=== PATIENT | male | born 1985 | race Caucasian/White ===

== ENCOUNTER 2021-03-11 20:33 | Inpatient (IN) | payer OTHER, SELFPAY ==
[2021-03-11 22:00] VITALS: BMI 28.5
--- NOTE | 2021-03-12 01:48 | PC.ADMIT ---
Addendum entered by Sushil Newell RN 03/12/21 02:13: Pt was placed on 15 minute safety checks after admitting orders obtained. Original Note: A white 35 year-old single male [facility] a section 12B at 2032 following referral from [facility]. Pt has no previous IPLOC here though pt reports he was sectioned two times without sufficient cause previously. Pt denies substance or Etoh use and reports no inpatient hospitalizations for this reason. Pt was referred from [facility] where pt was taken on section 12 by police following reports of pt making threats and statements involving a bomb and school shooting. Pt has a history of paranoia, mostly involving his neighbors. Pt expressed that he has neighbors who are police officires and / or connected to the court system and law enforcement. Pt believes that the neighbors, the courts, government and his insurance company are conspiring against him. Pt has a history of being fixated on the [place] bombings and the [employer] shootings. Pt has been sending emails, video taping and recording his neighbors. Pt believes he is being maliciously persecuted and harassed by his neighbors, which explains his behaviors. Pt reported in his [facility] assessment being bullied as a child and an adult due to his sexual orientation. 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 Pt currently has a psychologist, but no other providers. Pt was cooperative during admission, but was difficult to follow due to the complexity of pt's assertions. Medical issues include: Chrohn's and Celiacs in remission, Disautonomia and POTS for which he was last hospitalized for between 2010 and 2012. Pt is resting in room on 5 minutes Safety Checks at this time. [id number] done, initial treatment plan done and admitting orders obtained.
[2021-03-12 06:00] VITALS: BP 118/65; PULSE 76; RESP 16; TEMP 36.4; O2SAT 97
--- NOTE | 2021-03-12 06:08 | HO.PSYADMNOT ---
HPI Date of Service: 03/12/21 Chief Complaint: Delusional Sources of Information: patient interviewed, chart reviewed and crisis/core team assessment reviewed HPI Subjective Notes: Salmon Warning and Section 12B Healthcare Proxy: No Guardianship: No Medical Problems Affecting Mental Status: No Narrative: 35 SWM referred [facility] ED with delusions. Brought to ED after sending emails to an insurance company that his neighbor is trying to frame him and plans to plant a bomb in a school. Pt has ongoing paranoid delusions regarding a neighbor who now has a no contact order against him. 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 He states his neighbor and his son are both police officers who file false reports that frame him : that he yelled/that he made the bombs used in [place] bombing/that they have a vendetta against him/that they are part of an extortion plot and a false police state. He states he was part of the [employer] defense team. [facility]/his insurance company/school officials are part of this conspiracy and file malicious/false reports . Pt was noted to be videotaping staff in the ED and promptly asked TW to show me the [facility] reports to check for inconsistencies . Speech was rapid/pressured and jumped to various themes of persecution. He denied he has a mental illness/or that his perceptions were false. Bitterly complained that he has been illegally detained. He understood he is on a S12.He refuses medications. Past Psychiatric History: Therapist: Deepti Santoyo in [place]. Hx IP stays at [facility] July 2020/[facility] Dec 2019, [facility] July 2019, [facility] Apr 2016. He denies he has taken any neuroleptics (does not believe he needs them). Self reports he has not been committed or has a Parkinson order. Medical Evaluation Reviewed: Yes [facility] Medical History Dysautonomia History of celiac disease History of Crohn's disease POTS (postural orthostatic tachycardia syndrome) Surgical History History of colonoscopy Family History: None Social History: B and raised in [place]. Attended [employer] and [employer]. 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 Own guardian Substance History: None Trauma History: was subject to bullying in school with homophobic slurs Diagnostics Vital Signs (24Hr): BMI result Body Mass Index 28.5 Labs Results: 03/12/21 07:31 03/12/21 07:31 EKG EKG Comment: EKG not done Meds/Allergies Meds Home Medications Acetaminophen (Acetaminophen 325 Mg Tablet) 650 mg PO Q6H PRN PRN Reason: Headache/Pain Mild Scale (1-3) Al Hydroxide/Mg Hydroxide (Magnesium Hydrox/Alum Hydrox 30 Ml Oral.Susp) 30 ml PO Q6H PRN PRN Reason: Heartburn/Nausea Hydroxyzine HCl (Hydroxyzine Hcl 25 Mg Tablet) 25 mg PO Q6H PRN PRN Reason: Anxiety Magnesium Hydroxide (Milk Of Magnesia 30 Ml Oral.Susp) 30 ml PO DAILY PRN PRN Reason: Constipation Trazodone HCl (Trazodone Hcl 50 Mg Tablet) 50 mg PO BEDTIME PRN PRN Reason: Insomnia Allergies Allergies Allergy/AdvReac Type Severity Reaction Status Date / Time succinylcholine AdvReac Muscle Verified 03/12/21 00:05 cramps Mental Status Exam Mental Status Exam Patient Appearance: Well Grooomed and Appropriate Patient Orientation: Person, Place, Time and Situation Level of Consciousness: Restless and Alert Patient Behavior: Talkative and Restless Mood Description: Suspicious, Hostile, Labile and Angry Affect Description: Suspicious and Hostile Ability to Follow Directions: Good Speech Pattern: Rambling, Rapid, Animated, Loud and Pressured Memory Description: Intact Hallucinations: None Delusions: Paranoid Ideation (Elaborate persecutory delusions) and Bizarre Thought Process: Illogical Thought Content: positive for Flight of Ideas, positive for Suicidal Ideation (denies) and positive for Homicidal Ideation (denies) Judgement: Poor Assessment & Plan Assessment & Plan (1) Delusional disorder: Status: Acute Code(s): F22 - Delusional disorders Assessment and Plan: Will need civil committment for definitive treatment. Collect collateral information from parents/ other providers. (2) Psychosis: Status: Acute Code(s): F29 - Unspecified psychosis not due to a substance or known physiological condition Assessment and Plan: 35 SWKetan presents with elaborate delusions regarding persecutory conspiracies by his neighbor and other organizations (FBI/school/insurance company/ [employer]). No insight. Judgement is highly impaired and his delusions and behaviors pose a risk of retaliatory aggression from the targets of his paranoid investigations, and put him at risk. Patient educated on: diagnosis Informed Consent: does not understand Reason for continued inpatient stay Substantial Risk for: harm to self (by his paranoid behaviors), inability to function, rapid decompensation and other
--- NOTE | 2021-03-12 07:52 | P.CONHOSP_ITS ---
History of Present Illness Data of Consult Service Date: 03/12/21 Primary Care Provider: Unknown Physician HPI Reason for consult: Routine consult 35-year-old man with history of celiac disease, pots, Crohn's disease admitted to for psychiatric care. His vital signs are stable, labs within acceptable limits. He has no acute medical complaints at this time. He was transferred from [facility]. Review of Systems Review of Systems: Denies any recent fever chills or decrease in appetite respiratory denies any shortness of breath coverage production cardiovascular Denies chest pain gastrointestinal denies any dysphagia abdominal pain nausea vomiting or diarrhea genitourinary denies any dysuria frequency or hematuria musculoskeletal denies any joint pain or swelling neuropsych denies any weakness or seizures all other systems reviewed are negative [facility] Medical History (Updated 03/12/21 @ 10:11 by Jackie Haji NP) Dysautonomia History of celiac disease History of Crohn's disease POTS (postural orthostatic tachycardia syndrome) Pertinent family history: no cardiac disease Surgical History (Updated 03/12/21 @ 00:00 by Sushil Newell RN) History of colonoscopy Social History Household Members: Family Housing: House Do you presently have visiting nurse or other home services: No Patient Tobacco Use Status: Never used Tobacco Smoked in Last 30 Days: No e-Cigarette/Vaping Use: Never Used Patient Interested in Nicotine Replacement: No Patient Given Instructions on How to Stop Smoking: No Second Hand Smoke Exposure: No Use of substances other than those prescribed or required for medical reasons: No Currently Displaying Signs/Symptoms of Drug Intoxication Withdrawal: No Any prior treatment program specific to substance use: No Have you been hit, kicked, punched, or otherwise hurt by someone within the past year? If so, by whom?: No Do you feel safe in your current relationship?: No Current Relationship Is there a partner from a previous relationship who is making you feel unsafe now?: No Are you made to feel afraid or neglected: No Spiritual Healthcare Practices: N/A Worship Healthcare Practices: Alevism Cultural Healthcare Practices: N/A Advance Directives: No Advance Directives on File: No Do you have thoughts of harming others: None Do you have a plan to hurt others: No Plan Recently lost weight without trying: No Eating poorly because of decreased appetite: Yes Nutrition Risks: No Nutritional Risk Poor oral hygiene: No (Pt says recently chipped a tooth.) Meds Allergies Allergy/AdvReac Type Severity Reaction Status Date / Time succinylcholine AdvReac Muscle Verified 03/12/21 00:05 cramps Active Medications: Current Medications Acetaminophen (Acetaminophen 325 Mg Tablet) 650 mg PO Q6H PRN PRN Reason: Headache/Pain Mild Scale (1-3) Al Hydroxide/Mg Hydroxide (Magnesium Hydrox/Alum Hydrox 30 Ml Oral.Susp) 30 ml PO Q6H PRN PRN Reason: Heartburn/Nausea Hydroxyzine HCl (Hydroxyzine Hcl 25 Mg Tablet) 25 mg PO Q6H PRN PRN Reason: Anxiety Magnesium Hydroxide (Milk Of Magnesia 30 Ml Oral.Susp) 30 ml PO DAILY PRN PRN Reason: Constipation Trazodone HCl (Trazodone Hcl 50 Mg Tablet) 50 mg PO BEDTIME PRN PRN Reason: Insomnia Physical Exam Vital Signs and Narrative: Vital Signs: Last Vital Signs Temp 97.5 F 03/12/21 06:00 Pulse 76 03/12/21 06:00 Resp 16 03/12/21 06:00 BP 118/65 03/12/21 06:00 Pulse Ox 97 03/12/21 06:00 BMI result Body Mass Index 28.5 Appearing in no acute distress lung sounds are clear to auscultation heart regular rate rhythm, clear S1, S2 positive bowel sounds, abdomen is soft, nontender neuro patient is alert x3, no focal deficits CRANIAL NERVES 2-12 GROSSLY INTACT WITHOUT FOCAL DEFICITS Results Labs CBC and Chem 7: 03/12/21 07:31 03/12/21 07:31 Assessment and Plan (1) POTS (postural orthostatic tachycardia syndrome): Status: Acute (2) History of Crohn's disease: Status: Acute (3) History of celiac disease: Status: Acute 35-year-old man admitted to for psychiatric care History of celiac disease, Crohn's disease and POTS Mental health Management as per admittingmeeting team
[2021-03-12 08:01] LABS: MANUAL DIFF FLAG NO
[2021-03-12 08:04] LABS: Basophils Absolute Auto 0.1 X10*3/uL (0.0-0.2); Basophils Percent Auto 0.8 % (0-2); Eosinophils Absolute Auto 0.4 X10*3/uL (0.0-0.4); Eosinophils Percent Auto 5.4 % (0-4); Hematocrit 42.6 % (42.0-52.0); Hemoglobin 14.3 g/dl (14.0-18.0); Imm Gran Abs Auto 0.01 X10*3/uL (0.00-0.03); Imm Gran Pct Auto 0.2 % (0.0-0.4); Lymphocytes Absolute Auto 1.7 X10*3/uL (1.2-4.9); Lymphocytes Percent Auto 26.6 % (20-40); Mean Corpuscular HGB Conc 33.6 g/dl (31.0-36.0); Mean Corpuscular Hemoglobin 30.9 pg (27.0-33.0); Mean Platelet Volume 9.8 fL (9.4-12.4); Monocytes Absolute Auto 0.9 X10*3/uL (0.1-1.2); Monocytes Percent Auto 13.6 % (2-11); Neutrophils Absolute Auto 3.5 x10*3/uL (2.0-8.3); Neutrophils Percent Auto 53.4 % (45-73); Platelet Count 300 X10*3/uL (160-400); Red Blood Count 4.63 X10*6/uL (4.60-5.80); Red Cell Distribution Width 11.8 % (11.0-16.0); White Blood Count 6.5 X10*3/uL (4.8-10.8)
[2021-03-12 08:17] LABS: Estimated Average Glucose 100 mg/dL; Hemoglobin A1c % 5.1 %
[2021-03-12 08:21] LABS: Alanine Aminotransferase 18 U/L (0-40); Albumin Level 3.9 g/dL (3.5-5.0); Alkaline Phosphatase 62 U/L (39-117); Anion Gap 15 (12-20); Aspartate Amino Transferase 18 U/L (5-37); Bilirubin Total 0.7 mg/dL (0.0-1.0); Blood Urea Nitrogen 15 mg/dL (9-16); Calcium 9.4 mg/dL (8.4-10.2); Carbon Dioxide 25 mmol/L (22-29); Chloride 105 mmol/L (96-108); Cholesterol 145 mg/dL; Creatinine Clr Calc Pharmacy 154.3; Estimated Glomerular Filt Rate > 60; Glucose Fasting 100 mg/dL (60-99); HDL Cholesterol 26 mg/dL; LDL Cholesterol Calculated 89 mg/dl; Magnesium 2.2 mg/dL (1.6-2.6); Potassium 4.9 mmol/L (3.3-5.1); Sodium 140 mmol/L (135-145); Total Protein 6.6 g/dL (6.5-8.0); Triglycerides 154 mg/dL
[2021-03-12 08:44] LABS: Thyroid Stimulating Hormone 1.34 uIU/mL (0.32-4.0)
[2021-03-12 10:51] LABS: Amphetamine Screen Urine Not Detected (Not Detect); Barbiturates, Urine Not Detected (Not Detect); Benzodiazepines Screen Urine Not Detected (Not Detect); Cannabinoid Screen Urine Not Detected (Not Detect); Cocaine Screen Urine Not Detected (Not Detect); Fentanyl, urine Not Detected (Not Detect); Opiate Screen Urine Not Detected (Not Detect); Phencyclidine Screen Urine Not Detected (Not Detect)
[2021-03-12 17:22] VITALS: BP 140/82; PULSE 97; TEMP 36.6; O2SAT 95
--- NOTE | 2021-03-13 15:00 | HO.PSYCHPN ---
Subjective Subjective Date of Service: 03/13/21 Reason For Visit: Delusional Subjective Notes: [place] Warning and Section 12B Interim History: No change in delusional. Speech is pressured and legalistic. I tried to reality test but he insists he is not delusional. Became agitated. I explained S12 and preliminary information re committment. Risperidone prescribed but he said he will refuse Medication Compliance: No Review of Systems Medical Review of Systems: unchanged Review of Systems Review of Systems Denies any recent fever chills or decrease in appetite respiratory denies any shortness of breath coverage production cardiovascular Denies chest pain gastrointestinal denies any dysphagia abdominal pain nausea vomiting or diarrhea genitourinary denies any dysuria frequency or hematuria musculoskeletal denies any joint pain or swelling neuropsych denies any weakness or seizures all other systems reviewed are negative Yes all other systems are reviewed and are negative Mental Status Exam Mental Status Exam Patient Appearance: Well Grooomed and Appropriate Patient Orientation: Person, Place, Time and Situation Level of Consciousness: Restless and Alert Patient Behavior: Talkative and Restless Mood Description: Suspicious, Hostile, Labile and Angry Affect Description: Suspicious and Hostile Ability to Follow Directions: Good Speech Pattern: Rambling, Rapid, Animated, Loud and Pressured Memory Description: Intact Diagnostics Vital Signs (24Hr): Vital Signs - 24 hr 03/12/21 17:22 Temperature 98 F Pulse Rate 97 Blood Pressure 140/82 H Pulse Oximetry 95 BMI result Body Mass Index 28.5 Labs Results: 03/12/21 07:31 03/12/21 07:31 Labs: Laboratory Results - last 48 hr 03/12/21 03/12/21 03/12/21 07:31 07:31 07:31 WBC 6.5 RBC 4.63 Hgb 14.3 Hct 42.6 MCV 92.0 MCH 30.9 MCHC 33.6 RDW 11.8 Plt Count 300 MPV 9.8 Immature Gran % (Auto) 0.2 Neut % (Auto) 53.4 Lymph % (Auto) 26.6 [place] % (Auto) 13.6 H Eos % (Auto) 5.4 H Baso % (Auto) 0.8 Lymph # (Auto) 1.7 [place] # (Auto) 0.9 Eos # (Auto) 0.4 Baso # (Auto) 0.1 Abs Immat Gran (auto) 0.01 Absolute Neuts (auto) 3.5 Absolute Nucleated RBC 0.000 Nucleated RBC % (auto) 0.0 Sodium 140 Potassium 4.9 Chloride 105 Carbon Dioxide 25 Anion Gap 15 BUN 15 Creatinine 0.80 Estim Creat Clear Calc 154.3 Estimated GFR > 60 Fasting Glucose 100 H Estimat Average Glucose 100 Hemoglobin A1c % 5.1 Calcium 9.4 Magnesium 2.2 Total Bilirubin 0.7 AST 18 ALT 18 Alkaline Phosphatase 62 Total Protein 6.6 Albumin 3.9 Triglycerides 154 Cholesterol 145 LDL Cholesterol, Calc 89 HDL Cholesterol 26 TSH 1.34 Free T4 1.10 Urine Opiates Screen Urine Fentanyl Screen Ur Barbiturates Screen Ur Phencyclidine Scrn Ur Amphetamines Screen U Benzodiazepines Scrn Urine Cocaine Screen U Marijuana (THC) Screen 03/12/21 09:51 WBC RBC Hgb Hct MCV MCH MCHC RDW Plt Count MPV Immature Gran % (Auto) Neut % (Auto) Lymph % (Auto) [place] % (Auto) Eos % (Auto) Baso % (Auto) Lymph # (Auto) [place] # (Auto) Eos # (Auto) Baso # (Auto) Abs Immat Gran (auto) Absolute Neuts (auto) Absolute Nucleated RBC Nucleated RBC % (auto) Sodium Potassium Chloride Carbon Dioxide Anion Gap BUN Creatinine Estim Creat Clear Calc Estimated GFR Fasting Glucose Estimat Average Glucose Hemoglobin A1c % Calcium Magnesium Total Bilirubin AST ALT Alkaline Phosphatase Total Protein Albumin Triglycerides Cholesterol LDL Cholesterol, Calc HDL Cholesterol TSH Free T4 Urine Opiates Screen Not Detected Urine Fentanyl Screen Not Detected Ur Barbiturates Screen Not Detected Ur Phencyclidine Scrn Not Detected Ur Amphetamines Screen Not Detected U Benzodiazepines Scrn Not Detected Urine Cocaine Screen Not Detected U Marijuana (THC) Screen Not Detected Medications Medications Current Medications Acetaminophen (Acetaminophen 325 Mg Tablet) 650 mg PO Q6H PRN PRN Reason: Headache/Pain Mild Scale (1-3) Al Hydroxide/Mg Hydroxide (Magnesium Hydrox/Alum Hydrox 30 Ml Oral.Susp) 30 ml PO Q6H PRN PRN Reason: Heartburn/Nausea Hydroxyzine HCl (Hydroxyzine Hcl 25 Mg Tablet) 25 mg PO Q6H PRN PRN Reason: Anxiety Lorazepam (Lorazepam 1 Mg Tablet) 1 mg PO Q4H PRN PRN Reason: anxiety/restlessness Magnesium Hydroxide (Milk Of Magnesia 30 Ml Oral.Susp) 30 ml PO DAILY PRN PRN Reason: Constipation Risperidone (Risperidone 1 Mg Tablet) 1 mg PO BEDTIME KEKE Trazodone HCl (Trazodone Hcl 50 Mg Tablet) 50 mg PO BEDTIME PRN PRN Reason: Insomnia Allergies Allergies Allergy/AdvReac Type Severity Reaction Status Date / Time succinylcholine AdvReac Muscle Verified 03/12/21 00:05 cramps Assessment & Plan Assessment & Plan (1) Delusional disorder: Status: Acute Code(s): F22 - Delusional disorders Assessment and Plan: Will need civil committment for definitive treatment. Collect collateral information from parents/ other providers. (2) Psychosis: Status: Acute Code(s): F29 - Unspecified psychosis not due to a substance or known physiological condition Assessment and Plan: 35 KRISTAN presents with elaborate delusions regarding persecutory conspiracies by his neighbor and other organizations (FBI/school/insurance company/ [employer]). No insight. Judgement is highly impaired and his delusions and behaviors pose a risk of retaliatory aggression from the targets of his paranoid investigations, and put him at risk. 03/13/21: Start Risperidone (but pt likely will refuse) I spent minutes with the patient and/or on the patient floor today, greater than?50% of which was spent counseling/coordinating care. Informed Consent: does not understand Reason for contiued inpatient stay Substantial Risk for: rapid decompensation
[2021-03-13 17:43] VITALS: BP 142/90; PULSE 108; RESP 18; TEMP 36.9; O2SAT 96
[2021-03-14 08:34] LABS: Folate 8.3 ng/mL (> or = 4.0); Vitamin B12 436 pg/mL (200-900)
[2021-03-14 18:30] VITALS: BP 132/73; PULSE 101; TEMP 37.2
--- NOTE | 2021-03-14 22:05 | HO.PSYCHPN ---
Subjective Subjective Date of Service: 03/14/21 Reason For Visit: Delusional Interim History: Patient sitting in his room. He is polite and courteous. He does have pressured speech but is logical and linear. Patient starts by saying that his ending up in the emergency room as part of a convoluted process. He explains the reason he thinks he has been taking to the hospital starting with the back story of having his [employer] monthly pre-paid legal benefits discontinued this past July 2020 which he thinks is related to his neighbors or local police's influence. In 2019 patient says his neighbor purgered himself and told the court saying that the patient was making a bomb threat. Patient is talking quickly and the exact details and timeline is a little difficult to follow however the gist is that patient thinks his neighbor, former [employer] operations staff officer is stalking him and wrongly accusing him of talking about bombing his school were something of that nature. Patient says that he told his insurance company of a fear he had that someone had some intention of shooting the local elementary school room; it is not clear exactly who called whom but it seems that his neighbor at some point told police that patient talked about a balm and the police came and brought him to the emergency room by Section 12. Patient says this is ridiculous, he does not want hurt anyone he has never hurt anyone and he just wants his neighbor to leave him alone. He says that he has been cyber-stalked by his neighbor which he determined by looking at his neighbor's a Facebook page and realizing that his neighbor has befriended several autism specialists that work with the local elementary, middle school and high school; patient says that this is not a coincident since he has ASD. He says that he has been stalked by a Street car racing gang called feels like ... And that this gang stalked both patient and his mother in to [employer]. Patient sent an e-mail to the [employer] ethics hot line and said he got a reply saying these people are now band from [employer]. He says that this gang is friends with the organ recovery coordinator in [facility]. He said that their motivation is to build false complaints against him. Patient is willing to acknowledge that he may be misinterpreting these events and may be completely incorrect in his assessment of his neighbor and whether or not he is being stalked. He says however that he has a right to be wrong also and has a right to inquire to see if he is in-fact being cyber bullied or stalked. Patient denies any SI or HI or AVH. He reports that he sleeps well at night, 8-12 hours and denies history of episodic insomnia. Patient encouraged is documentation writer to talk with Dr. Nixon in his therapist whom patient signed an GARY. Patient said he is willing to consider that there is a remote possibility he has a mental illness and these are delusional thoughts however he feels this is very unlikely and he is not interested at all in any kind of medication. Lumber Inspector did talk with his therapist Dr. Santoyo who has seen him for the past 2 years about once a week. She says that every week patient is presenting pretty much exactly the same as he is presenting now on the unit. She has diagnosed him with a delusional disorder and says that for years he has been fixated on this exact same theme, that his neighbor is somehow stalking him and bothering him and falsely accusing him. This is wrapped up in his fixed belief that someone is planning to bottom the elementary school. She says in all the time she has known him he has never talked about hurting anyone and she has never had any concern at all for his safety or the safety of others. She reports that he has been Section 12 at least 2 times and that is typically released within a day or 2 as those examine him come to the same conclusion that he is not in imminent risk for harm to himself or others. She said even this time at the emergency room, the N and die storage worker present initially said that he does not need inpatient admission however she was convinced by others to do so. She thinks that he likely has ASD; she has wondered if he has any manic episodes however she has been unable to diagnose this. Mental Status Exam Mental Status Exam Narrative: Pt is alert and oriented; behavior is cooperative, friendly; patient is not in distress; dressed in casual attire with neat cloths and appropriately styled hair and adequate hygiene; mood is described as good and affect anxious; eye contact appropriate; Speech is pressured but normal volume and prosody and not pressured; no psychomotor agitation/retardation present; thought process is organized, linear, logical and goal directed however, he can also be circumstantial; Thought content is perseverative on idea that his neighbor is purposely persecuting him; denies any SI/HI. There is no evidence of perceptual disturbance and he denies AVH. Patients insight and judgment are impaired but based on collateral likely at baseline. Diagnostics Vital Signs (24Hr): Vital Signs - 24 hr 03/14/21 18:30 Temperature 98.9 F Pulse Rate 101 H Blood Pressure 132/73 BMI result Body Mass Index 28.5 Labs Results: 03/12/21 07:31 03/12/21 07:31 Labs: Laboratory Results - last 48 hr 03/12/21 07:31 Vitamin B12 436 Folate 8.3 Medications Medications Current Medications Acetaminophen (Acetaminophen 325 Mg Tablet) 650 mg PO Q6H PRN PRN Reason: Headache/Pain Mild Scale (1-3) Al Hydroxide/Mg Hydroxide (Magnesium Hydrox/Alum Hydrox 30 Ml Oral.Susp) 30 ml PO Q6H PRN PRN Reason: Heartburn/Nausea Hydroxyzine HCl (Hydroxyzine Hcl 25 Mg Tablet) 25 mg PO Q6H PRN PRN Reason: Anxiety Lorazepam (Lorazepam 1 Mg Tablet) 1 mg PO Q4H PRN PRN Reason: anxiety/restlessness Magnesium Hydroxide (Milk Of Magnesia 30 Ml Oral.Susp) 30 ml PO DAILY PRN PRN Reason: Constipation Risperidone (Risperidone 1 Mg Tablet) 1 mg PO BEDTIME KEKE Last Admin: 03/13/21 21:57 Dose: Not Given Documented by: Trazodone HCl (Trazodone Hcl 50 Mg Tablet) 50 mg PO BEDTIME PRN PRN Reason: Insomnia Allergies Allergies Allergy/AdvReac Type Severity Reaction Status Date / Time succinylcholine AdvReac Muscle Verified 03/12/21 00:05 cramps Assessment & Plan Assessment & Plan (1) Delusional disorder: Status: Acute Code(s): F22 - Delusional disorders Assessment and Plan: Will need civil committment for definitive treatment. Collect collateral information from parents/ other providers. Assessment and Plan: 35 KRISTAN presents with elaborate delusions regarding persecutory conspiracies by his neighbor and other organizations (FBI/school/insurance company/ [employer]). No insight. Patient has a history of delusional disorder and perseverates on paranoid delusion that his neighbor conspires to malign his name and and may have nepharious intentions. Patient denies any SI or HI or AVH. Patient has a therapist he sees once a week who reports that patient has had this fixed delusion for years but has never done anything unsafe and that she has never had any concern for his safety or safety of others at his hand. Patient refuses medication. He is willing to acknowledge that he may be misinterpreting events or facts however he feels this is very low possibility and overall believes his delusion as true. Based on patient's current presentation and on collateral it is not clear that patient is in any imminent risk of harm to self or others. Will continue to collect collateral Plan: Patient on 12 B Q 15 minutes for checks Patient refuses all medications Will continue to gather collateral I spent minutes with the patient and/or on the patient floor today, greater than?50% of which was spent counseling/coordinating care. Reason for contiued inpatient stay Substantial Risk for: med/psych decompensation
--- NOTE | 2021-03-15 10:27 | HO.PSYCHPN ---
Subjective Subjective Date of Service: 03/15/21 Reason For Visit: Delusional Interim History: Patient reports that he is overall doing well but is anxious and feels that he has been admitted to the psychiatric unit unfairly. Patient helps clarify course of events leading to this admission. Patient said that his legal group [employer] canceled his contract which he believes is due to interference from his neighbor and possibly the local police. Because patient believe this was the reason, he wrote and e-mailto the [employer] company explaining that his neighbor had in the past per did himself by lying in saying that patient was connected with the [place] marathon bombing incident. Also in the mail he referred to the neighbor's son saying he was concerned that he may be up to something nefarious since the son has friend did numerous people on Facebook that are associated with the local elementary and middle school (patient says that he feels cyber stalked because this person also has on his Facebook account mentioning of items of interest such as golf, new balance shoes, Kathleen speakers and mention of ASD, things that are of interest to this patient). [employer] forwarded this email to the police. Patient says says that the police showed up at his door with a Section 12 and explained they got the e-mail from [employer] and had concerns concerns that he was going to mom/shoot up the elementary school. Patient said this is ridiculous but went with him to the emergency room. Patient reports that he does have a Taser at home however he denies having any other weapons at all of any kind. It is also worth that despite patients persecutory delusions, he has only 2 times verbally yelled that his neighbor. The 1st time was December 2018 and the 2nd time was July 2019 where he yelled and called his neighbor a swear, angry at his neighbor due to patients delusions that neighbor is trying to associate him with the [place] marathon bombing. Patient says that he has never physically, verbally, or with gestures threatened his neighbor or anyone, nor has he gone on his neighbor's property (he says other then perhaps one time, 5 years ago since a piece of trash blew on to neighbors lawn). Patient says that he has also never been to his school's since he graduated. Patient reports that his neighbor, following being yelled at called the police and patient was charged with harassment. However this harassment charge was dismissed when it finally went to court on 03/01/2021, just 2 weeks ago. Patient feels that the timing of this is relevant and that his neighbor is likely just pissed off that the charge was dismissed. Patient says he goes out of his weight to avoid him and prefer to have no contact or interactions all; he reiterates upon inquiry he has no ill will, intentions or plans to harm anyone. He said he has contemplated moving himself. Patients therapist reports patient is rule oriented to which patient wholeheartedly agrees; he says ever since July 2019 when intervening custom protection officer told him to not talk to his neighbor, patient has fully obeyed and says he goes out of his way to avoid him. Farm Operator discussed again the idea of medication. Patient does not believe he has a delusional disorder; he agrees that this situation has been stressful and that it interferes with his life making it hard for him to maintain employment since he is focused on trying to figure this out. He thinks writer editor for offer a medication, but also does not want medication to help make this less stressful for him. Collateral was obtained from patient's mother by social welfare administrator She reports that she thinks the issue is really an interpersonal one with neighbors and she says that neighbor, a former attorney law clerk, has submitted false reports in effort to get them out of neighborhood and says that she too has had interpersonal issues with the neighbor whose made complaints about state of her home. She thinks that Michael had sent an email which she notes was to an insurance company with hope of him getting back onto a plan. She is uncertain as to what he wrote in the email or if he had made accusations towards others. She is unsure if neighbor had called and made report or if it was a result of email. She corroborates that no contact/harassment order was dismissed by court. She says her son has never made threats towards anyone and feels he?s safe to return home. Patient's mother corroborates that patient does have a Taser but the he does not have any other weapons of any kind nor are there any other weapons in the house. shoddy mill worker Gina Coppola was able to get additional information from police report regarding this incident and paraphrasing, says the email expressed patients worry that there was going to be a bomb at the elementary school on 03/15 and that he was afraid he would be blamed for it. Mental Status Exam Mental Status Exam Narrative: Pt is alert and oriented; behavior is cooperative, friendly; patient is not in distress; dressed in casual attire with neat cloths and appropriately styled hair and adequate hygiene; mood is described as good and affect anxious; eye contact appropriate; Speech is pressured but normal? volume and prosody and not pressured; no psychomotor agitation/retardation present; thought process is organized, linear, logical and goal directed however, he can also be circumstantial; Thought content is perseverative on idea that his neighbor is purposely persecuting him; denies any SI/HI. There is no evidence of perceptual disturbance and he denies AVH.? Patients insight and judgment are impaired but based on collateral likely at baseline. Diagnostics Vital Signs (24Hr): Vital Signs - 24 hr 03/14/21 18:30 Temperature 98.9 F Pulse Rate 101 H Blood Pressure 132/73 BMI result Body Mass Index 28.5 Labs Results: 03/12/21 07:31 03/12/21 07:31 Labs: Laboratory Results - last 48 hr 03/12/21 07:31 Vitamin B12 436 Folate 8.3 Medications Medications Current Medications Acetaminophen (Acetaminophen 325 Mg Tablet) 650 mg PO Q6H PRN PRN Reason: Headache/Pain Mild Scale (1-3) Al Hydroxide/Mg Hydroxide (Magnesium Hydrox/Alum Hydrox 30 Ml Oral.Susp) 30 ml PO Q6H PRN PRN Reason: Heartburn/Nausea Hydroxyzine HCl (Hydroxyzine Hcl 25 Mg Tablet) 25 mg PO Q6H PRN PRN Reason: Anxiety Lorazepam (Lorazepam 1 Mg Tablet) 1 mg PO Q4H PRN PRN Reason: anxiety/restlessness Magnesium Hydroxide (Milk Of Magnesia 30 Ml Oral.Susp) 30 ml PO DAILY PRN PRN Reason: Constipation Risperidone (Risperidone 1 Mg Tablet) 1 mg PO BEDTIME KEKE Last Admin: 03/15/21 00:24 Dose: Not Given Documented by: Trazodone HCl (Trazodone Hcl 50 Mg Tablet) 50 mg PO BEDTIME PRN PRN Reason: Insomnia Allergies Allergies Allergy/AdvReac Type Severity Reaction Status Date / Time succinylcholine AdvReac Muscle Verified 03/12/21 00:05 cramps Assessment & Plan Assessment & Plan (1) Delusional disorder: Status: Acute Code(s): F22 - Delusional disorders Assessment and Plan: Will need civil committment for definitive treatment. Collect collateral information from parents/ other providers. (2) Psychosis: Status: Acute Code(s): F29 - Unspecified psychosis not due to a substance or known physiological condition Assessment and Plan: 35 SWM with history of delusional disorder and probably ASD, presents with delusions regarding persecutory conspiracies by his neighbor and other organizations (FBI/school/legal company/ [employer]); limited insight. Patient has a history of delusional disorder and perseverates on paranoid delusion that his neighbor conspires to malign his name, is trying to associate the patient with the [employer] bombing and may have nefarious intentions. 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 On admission, pt refused to sign in and was admitted on a Section 12b. He denies mental illness and does not feel need for medication. Patient denies any SI or HI or AVH. Patient denies any thought, intention or plan of ever of harming anyone, shooting anything or bombing anything. Patient has a fixed false belief that his neighbor and neighbor's son have been stalking him on the Internet, sending a Street racing car gang to follow him in the community and are involved in getting his legal firm to cancel their contract with him. He acknowledges that he might be misinterpreting events or facts and that it is possible he could be having delusional ideas (though he thinks this very unlikely); however he also says he has the right to be wrong and the right to pursue an inquiry whether he is being stalked on the Internet or in the community. Patient agrees that these concerns are stressful for him and have made it difficult for him to continue working full-time. However he accepts this as a fact of his life. Patient does go to therapy once a week for the past 2 years. Farm Operator talked to Dr. Santoyo, his therapist who reports that patient has had this fixed delusion for years but has never done anything unsafe and that she has never had any concern for his safety or safety of others at his hand. Patient's mother corroborates that patient has never been unsafe to anyone and has no intentions or plans to harm anyone. She believes that the neighbor has given a false report about her son as well. It is also worth that despite patients persecutory delusions, he has only 2 times verbally yelled that his neighbor. The 1st time was December 2018 and the 2nd time was July 2019 where he yelled and called his neighbor a swear, angry at his neighbor due to patients delusions that neighbor is trying to associate him with the [place] marathon bombing. Patient says that he has never physically, verbally, or with gestures threatened his neighbor or anyone, nor has he gone on his neighbor's property (he says other then perhaps one time, 5 years ago since a piece of trash blew on to neighbors lawn). Patient says that he has also never been to his school's since he graduated. Patient reports that his neighbor, following being yelled at called the police and patient was charged with harassment. However this harassment charge was dismissed when it finally went to court on 03/01/2021, just 2 weeks ago. Patient feels that the timing of this is relevant and that his neighbor is likely just pissed off that the charge was dismissed. Patient says he goes out of his way to avoid him and prefers to have no contact or interactions all; he reiterates upon inquiry he has no ill will, intentions or plans to harm anyone. He said he has contemplated moving himself. Throughout his time on the unit patient has remained delusional, with poor insight and not wanting treatment. However, patient is at his baseline and he has remained appropriate with peers and staff, been in good behavioral and impulse control and consistently denied any SI or HI. He is not depressed, without manic behaviors and has remains with organized speech, organized behavior and a logical and linear thought process. To writers knowledge, patient has no history at all of harm to self or harm to others or of making threats to harm in any way which is corroborated by patients mother and therapist. Patient's therapist says that this is a pattern for patient, to reference vomiting or shooting, to get Section to the emergency room but to be quickly discharged with those assessing him deciding he is safe. Given patient has chronic, untreated persecutory delusional disorder, it is likely that he will continue to believe that his neighbor is stalking him and perseverate on school by means or shootings. However based on his presentation and collateral from both his mother and therapist who know him well, writer editor cannot testify that patient is in imminent risk of harm to self or others. Collateral: -Collateral obtained from patient's therapist Dr. Santoyo who is known patient for 2 years and sees him weekly and reports that patient has a delusional disorder; she reports that she does not nor has she ever had any concern that he was unsafe for danger to himself or others. She reports that he has been fixated on delusional ideas about this specific neighbor. -Collateral was obtained from patient's mother who reports that she thinks the issue is really an interpersonal one with neighbors and she says that neighbor, a former attorney law clerk, has submitted false reports in effort to get them out of neighborhood and says that she too has had interpersonal issues with the neighbor whose made complaints about state of her home. She thinks that Michael had sent an email which she notes was to an [legal] company with hope of him getting back onto a plan. She is uncertain as to what he wrote in the email or if he had made accusations towards others. She is unsure if neighbor had called and made report or if it was a result of email. She corroborates that no contact/harassment order was dismissed by court. She says her son has never made threats towards anyone and feels he?s safe to return home. Patient's mother corroborates that patient does have a Taser but the he does not have any other weapons of any kind nor are there any other weapons in the house. -Information regarding reason police picked up patient and brought to ED was obtained by shoddy mill worker Gina Coppola; apparently, police report says police learned of email sent by patient to the legal firm that expressed patients worry that there was going to be a bomb at the elementary school on 03/15 and that he was afraid he would be blamed for it. PLAN: Patient on 12 B Q 15 minutes for checks Patient refuses all medications I spent minutes with the patient and/or on the patient floor today, greater than?50% of which was spent counseling/coordinating care. Reason for contiued inpatient stay Substantial Risk for: stable for discharge
[2021-03-15 20:20] VITALS: BP 137/83; PULSE 92; RESP 16; TEMP 36.1; O2SAT 98
[2021-03-16 10:56] VITALS: BP 142/74; PULSE 109; RESP 16; O2SAT 99
--- NOTE | 2021-03-16 12:20 | PM.PSYDC ---
DS: Providers Provider Date of Service: 03/16/21 Date of admission: 03/11/21 20:33 Date of discharge: 03/16/21 Primary care physician: Unknown Physician Admitting clinician: Sergei Willis Consults: 03/11/21 21:50 Consult to Hospitalist Routine Consulting Provider: Hospitalist Reason For Exam: [place] [facility] [place] physician on discharge: Morgan Quinn DS: Diagnosis Discharge Diagnosis (1) Delusional disorder: Status: Acute (2) Psychosis: Status: Acute Mental Status Exam Mental Status Exam Narrative: ?Pt is alert and oriented; behavior is cooperative, friendly; patient is not in distress; dressed in casual attire with neat cloths and appropriately styled hair and adequate hygiene; mood is described as good and affect anxious; eye contact appropriate; Speech is pressured but normal? volume and prosody and not pressured; no psychomotor agitation/retardation present; thought process is organized, linear, logical and goal directed however, he can also be circumstantial; Thought content is perseverative on idea that his neighbor is purposely persecuting him; denies any SI/HI. There is no evidence of perceptual disturbance and he denies AVH.? Patients insight and judgment are impaired but at baseline. Data Data Completed and Pending Completed studies during hospitalization [Text1]: 03/12/21 03/12/21 03/12/21 07:31 07:31 07:31 WBC 6.5 RBC 4.63 Hgb 14.3 Hct 42.6 MCV 92.0 MCH 30.9 MCHC 33.6 RDW 11.8 Plt Count 300 MPV 9.8 Immature Gran % (Auto) 0.2 Neut % (Auto) 53.4 Lymph % (Auto) 26.6 [place] % (Auto) 13.6 H Eos % (Auto) 5.4 H Baso % (Auto) 0.8 Lymph # (Auto) 1.7 [place] # (Auto) 0.9 Eos # (Auto) 0.4 Baso # (Auto) 0.1 Abs Immat Gran (auto) 0.01 Absolute Neuts (auto) 3.5 Absolute Nucleated RBC 0.000 Nucleated RBC % (auto) 0.0 Sodium 140 Potassium 4.9 Chloride 105 Carbon Dioxide 25 Anion Gap 15 BUN 15 Creatinine 0.80 Estim Creat Clear Calc 154.3 Estimated GFR > 60 Fasting Glucose 100 H Estimat Average Glucose 100 Hemoglobin A1c % 5.1 Calcium 9.4 Magnesium 2.2 Total Bilirubin 0.7 AST 18 ALT 18 Alkaline Phosphatase 62 Total Protein 6.6 Albumin 3.9 Triglycerides 154 Cholesterol 145 LDL Cholesterol, Calc 89 HDL Cholesterol 26 Vitamin B12 Folate TSH 1.34 Free T4 1.10 Urine Opiates Screen Urine Fentanyl Screen Ur Barbiturates Screen Ur Phencyclidine Scrn Ur Amphetamines Screen U Benzodiazepines Scrn Urine Cocaine Screen U Marijuana (THC) Screen 03/12/21 03/12/21 07:31 09:51 WBC RBC Hgb Hct MCV MCH MCHC RDW Plt Count MPV Immature Gran % (Auto) Neut % (Auto) Lymph % (Auto) [place] % (Auto) Eos % (Auto) Baso % (Auto) Lymph # (Auto) [place] # (Auto) Eos # (Auto) Baso # (Auto) Abs Immat Gran (auto) Absolute Neuts (auto) Absolute Nucleated RBC Nucleated RBC % (auto) Sodium Potassium Chloride Carbon Dioxide Anion Gap BUN Creatinine Estim Creat Clear Calc Estimated GFR Fasting Glucose Estimat Average Glucose Hemoglobin A1c % Calcium Magnesium Total Bilirubin AST ALT Alkaline Phosphatase Total Protein Albumin Triglycerides Cholesterol LDL Cholesterol, Calc HDL Cholesterol Vitamin B12 436 Folate 8.3 TSH Free T4 Urine Opiates Screen Not Detected Urine Fentanyl Screen Not Detected Ur Barbiturates Screen Not Detected Ur Phencyclidine Scrn Not Detected Ur Amphetamines Screen Not Detected U Benzodiazepines Scrn Not Detected Urine Cocaine Screen Not Detected U Marijuana (THC) Screen Not Detected DS: Summary Hospital Course Hospital Course: 35 SWM with history of delusional disorder and probably ASD, presents with delusions regarding persecutory conspiracies by his neighbor and other organizations (FBI/school/legal company/ [employer]); limited insight. Patient has a history of delusional disorder and perseverates on paranoid delusion that his neighbor conspires to malign his name, is trying to associate the patient with the [place] marathon bombing? and may have nefarious intentions. 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 On admission, pt refused to sign in and was admitted on a Section 12b. He denies mental illness and does not feel need for medication. Patient denies any SI or HI or AVH.? Patient denies any thought, intention or plan of ever of harming anyone, shooting anything or bombing anything.? Patient has a fixed false belief that his neighbor and neighbor's son have been stalking him on the Internet, sending a Street racing car gang to follow him in the community and are involved in getting his legal firm to cancel their contract with him.? He acknowledges that he might be misinterpreting events or facts and that it is possible he could be having delusional ideas (though he thinks this very unlikely); however he also says he has the right to be wrong? and the right to pursue an inquiry whether he is being stalked on the Internet or in the community.? Patient agrees that these concerns are stressful for him and have made it difficult for him to continue working full-time.? However he accepts this as a fact of his life.? Patient does go to therapy once a week for the past 2 years.? Long Chain Dyeing Machine Operator talked to Dr. Santoyo, his therapist who reports that patient has had this fixed delusion for years but has never done anything unsafe and that she has never had any concern for his safety or safety of others at his hand.? Patient's mother corroborates that patient has never been unsafe to anyone and has no intentions or plans to harm anyone.? She believes that the neighbor has given a false report about her son as well. It is also worth that despite patients persecutory delusions, he has only 2 times verbally yelled that his neighbor.? The 1st time was December 2018 and the 2nd time was July 2019 where he yelled and called his neighbor a swear, angry at his neighbor due to patients delusions that neighbor is trying to associate him with the [place] marathon bombing.? Patient says that he has never physically, verbally, or with gestures threatened his neighbor or anyone, nor has he gone on his neighbor's property (he says other then perhaps one time, 5 years ago since a piece of trash blew on to neighbors lawn).? Patient says that he has also never been to his school's since he graduated.? Patient reports that his neighbor, following being yelled at called the police and patient was charged with harassment.? However this harassment charge was dismissed when it finally went to court on 03/01/2021, just 2 weeks ago.? Patient feels that the timing of this is relevant and that his neighbor is likely just pissed off that the charge was dismissed. Patient says he goes out of his way to avoid him and prefers to have no contact or interactions all; he reiterates upon inquiry he has no ill will, intentions or plans to harm anyone.? He said he has contemplated moving himself. Throughout his time on the unit patient has remained delusional, with poor insight and not wanting treatment. However, patient is at his baseline and he has remained appropriate with peers and staff, been in good behavioral and impulse control and consistently denied any SI or HI. He is not depressed, without manic behaviors and has remains with organized speech, organized behavior and a logical and linear thought process. To writers knowledge, patient has no history at all of harm to self or harm to others or of making threats to harm in any way which is corroborated by patients mother and therapist.? Patient's therapist says that this is a pattern for patient, to reference bombing/shooting, to get Section to the emergency room but to be quickly discharged with those assessing him deciding he is safe.? On day of discharge patient admits that he was wrong and that his neighbor had no intention of a terrorist attack (March 15 reference was because it was the anniversary of another school shooting). He explained to comic writer that the day came and went and nothing happened... so I was wrong... but I think I should be commended for [voicing] my concern. Given patient has chronic, untreated persecutory delusional disorder, it is likely that he will continue to believe that his neighbor is stalking him and continue to perseverate on school shootings.? However based on his presentation and collateral obtained from both his mother and therapist who know him well, comic writer cannot testify that patient is in imminent risk of harm to self or others. He does not meet criteria for involuntary commitment and his request for discharge is honored. He is discharged back to the supportive environment of his parents and to his therapist whom he sees weekly. Collateral: -Collateral obtained from patient's therapist Dr. Santoyo who is known patient for 2 years and sees him weekly and reports that patient has a delusional disorder; she reports that she does not nor has she ever had any concern that he was unsafe for danger to himself or others.? She reports that he has been fixated on delusional ideas about this specific neighbor. -Collateral was obtained from patient's mother who reports that she thinks the issue is really an interpersonal one with neighbors and she says that neighbor, a former summer law clerk, has submitted false reports in effort to get them out of neighborhood and says that she too has had interpersonal issues with the neighbor whose made complaints about state of her home. She thinks that Michael had sent an email which she notes was to an [legal] company with hope of him getting back onto a plan. She is uncertain as to what he wrote in the email or if he had made accusations towards others. She is unsure if neighbor had called and made report or if it was a result of email.? She corroborates that no contact/harassment order was dismissed by court. She says her son has never made threats towards anyone and feels he?s safe to return home.? Patient's mother corroborates that patient does have a Taser but the he does not have any other weapons of any kind nor are there any other weapons in the house. -Information regarding reason police picked up patient and brought to ED was obtained by bridge worker apprentice Gina Coppola; apparently, police report says police learned of email sent by patient to the legal firm that expressed patients worry that there was going to be a bomb at the elementary school on 03/15 and that he was afraid he would be blamed for it. Time spent discussing smoking cessation with patient: 3 to 10 minutes Status at Discharge Functional status at discharge: independent ambulation Overall status at discharge: patient is back to baseline Time Spent with Patient Time attestation: Total time spent providing and/or coordinating discharge services: Time spent: Greater than 30 minutes Discharge Plan Discharge Patient Disposition: Home, Self-Care Discharge Diagnosis: delusional disorder Referrals: Dr. Deepti Santoyo [Other] - Tomorrow (Pt needs to follow-up with outpatient therapist to schedule appointment following discharge from hospital as unable to establish contact with provider. Patient agrees to follow-up on discharge from [facility].) Physician,Unknown J [Primary Care Provider] - 1 Week Discharge Orders: Discharge Order (Routine); Ordered 03/16/21 Ordered By: Morgan Quinn Diet: regular diet Activity on Discharge: As tolerated Stand Alone Forms: Patient Portal Discharge page Care Plan Goals: Maintain mood and safe behaviors Practice coping skills Continue with outpatient providers and reach out to them as needed Health Concerns: Anxiety POTS Plan of Treatment: Follow up with your PCP and psychiatric provider regarding above concerns Assessment: Risk assessment at time of discharge:? Patient was interviewed prior to discharge and found to be fully oriented and without any SI or HI. Patient has insight and demonstrates good judgment in terms of wanting to pursue treatment. Patient is not in imminent risk of harm to self or others and has a safety plan that includes presenting to the closest ER or calling 911 if feeling unsafe.? Patient has been observed closely by nursing and unit staff throughout admission; patient has not engaged in any behaviors that suggest dangerousness to self or others and has demonstrated appropriate behaviors and impulse control
== END 2021-03-16 15:50 | disposition home or self-care (01) | DRG 751 ==
PROVIDERS: Registered Nurse; Admitting Provider Psychiatry & Neurology Psychiatry; Visit Provider Psychiatry & Neurology Psychiatry
DX: F29 Unspecified psychosis not due to a substance or known physiological condition (principal); K50.90 Crohn's disease, unspecified, without complications; K90.0 Celiac disease
CPT/HCPCS: 36415; 80053; 80061; 80307; 82607; 82746; 83036; 83735; 84439; 84443; 85025